=== PATIENT | female | born 1965 | race Caucasian/White ===

== ENCOUNTER 2017-05-02 09:39 | Day surgery (SDC) | payer OTHER ==
[~2017-05-02] VITALS: Ht 157.5 cm; Wt 80.3 kg
[~2017-05-02 09:39] MED LIST: AMIT50 PO; ESZO2 PO; FLUT110OIA INH; FLUT220OIA INH; GABA800 PO; LORA10 PO; MELO7.5 PO; Minipress5 MG PO; Mobic15 MG PO; QUET200 PO; QUET300 PO; TRAM50 PO; TRIHEXYPHEN PO; Trihexyphenidyl2 MG PO; Ultram50 MG PO; VITAMIN D-32000 UNIT PO
== END 2017-05-02 11:42 | disposition home or self-care (01) ==
LOC: ORSCSDS 09:39
PROVIDERS: Otolaryngology
PROC: 0D757ZZ Dilation of Esophagus, Via Natural or Artificial Opening (ICD-10-PCS; principal; 2017-05-02 11:00)
DX: R13.14 Dysphagia, pharyngoesophageal phase (principal); K44.9 Diaphragmatic hernia without obstruction or gangrene; F41.9 Anxiety disorder, unspecified; J44.9 Chronic obstructive pulmonary disease, unspecified; F20.9 Schizophrenia, unspecified; F43.12 Post-traumatic stress disorder, chronic; Z86.59 Personal history of other mental and behavioral disorders; E66.9 Obesity, unspecified; Z68.32 Body mass index [BMI] 32.0-32.9, adult; Z87.891 Personal history of nicotine dependence; Z79.899 Other long term (current) drug therapy
CPT/HCPCS: J1100; J7120

== ENCOUNTER → 2017-10-03 | Outpatient (CLI) | payer OTHER ==
[2017-10-05 17:08] LABS: HPV 16 Negative (Negative); HPV 18 Negative (Negative); HPV OTHER HR TYPES Negative (Negative)
== END ==
LOC: LAB SHORT 09:07 → LAB 09:07
PROVIDERS: Nurse Practitioner Family
DX: Z12.4 Encounter for screening for malignant neoplasm of cervix (principal)
CPT/HCPCS: 87624; G0145